=== PATIENT | female | born 1965 | race Caucasian/White ===

== ENCOUNTER → 2016-12-10 | Outpatient (CLI) | payer OTHER ==
--- NOTE | 2016-12-10 13:28 | XR ---
EXAMINATION TYPE: XR chest 2V DATE OF EXAM: 12/10/2016 COMPARISON: Prior chest x-ray 09/30/2015 HISTORY: Breast carcinoma, C50.411, cellulitis and chest wall, L03.313 TECHNIQUE: Frontal and lateral views of the chest are obtained. FINDINGS: There is no focal air space opacity, pleural effusion, or pneumothorax seen. The cardiac silhouette size is within normal limits. The osseous structures are remarkable for acromioclavicula r separation on the right, superior displacement of the distal clavicle relation to the acromion as o n previous exam. Breast prostheses are present. IMPRESSION: No acute cardiopulmonary process.
== END ==
LOC: RADXRMAIN 11:39
PROVIDERS: ATTEND Internal Medicine Hematology & Oncology
DX: C50.411 Malignant neoplasm of upper-outer quadrant of right female breast (principal); L03.313 Cellulitis of chest wall; Z17.1 Estrogen receptor negative status [ER-]; Z71.3 Dietary counseling and surveillance
CPT/HCPCS: 71020

== ENCOUNTER 2019-06-18 08:30 | Observation (INO) | payer OTHER ==
[2019-06-18] MEDS ORDERED: ONDANSETRON 4 MG/2 ML VIAL IVP STA (08:53)
[2019-06-18] MEDS ORDERED: SODIUM CHLORIDE 0.9% 1,000 ML IV STA ×2 (08:53)
[2019-06-18] MEDS ORDERED: KETOROLAC 30 MG/ML 1 ML VIAL IVP STA (08:53)
[2019-06-18] MEDS ORDERED: PANTOPRAZOLE 40 MG/10 ML VIAL IVP STA (08:53)
--- NOTE | 2019-06-18 08:56 | ED ---
Abdominal Pain HPI - General Chief Complaint: Abdominal Pain Stated Complaint: Abd Pain,Rectal Bleeding Time Seen by Provider: 06/18/19 08:37 Source: patient, RN notes reviewed, old records reviewed Mode of arrival: ambulatory Limitations: no limitations - History of Present Illness Initial Comments: Patient is a 54-year-old female with a history of ulcerative colitis. She presents today with 2 days of general malaise, and some bright red stools. Adilson desai reports that she's been having some lower abdominal pain. Patient states that she's had no specific fevers or chills. Denies any vomiting but did feel nauseated. She denies any chest pain or shortness of breath. Her ports that she's previously seen Dr. Tanner and had a colonoscopy approximately 4 years ago. Patient reports that she had a precancerous polyp. - Related Data Home Medications Medication Instructions Recorded Confirmed ALPRAZolam [Xanax] 0.5 mg PO HS PRN 09/25/15 01/18/16 Atorvastatin [Lipitor] 10 mg PO DAILY 09/25/15 01/18/16 HYDROcodone/APAP 10-325MG [[place] 1 - 2 tab PO DAILY PRN 09/25/15 01/18/16 10-325] Bisoprolol-Hctz 5-6.25 mg [Ziac 1 tab PO DAILY 01/18/16 01/18/16 5-6.25 MG] Multivitamins, Thera [Multivitamin] 1 tab PO DAILY 01/18/16 01/18/16 Allergies Allergy/AdvReac Type Severity Reaction Status Date / Time bacitracin Allergy Unknown Verified 06/18/19 08:36 [From Neosporin ([id number])] bacitracin zinc Allergy Unknown Verified 06/18/19 08:36 [From Neosporin ([id number])] minocycline [Minocycline] Allergy Unknown Verified 06/18/19 08:36 neomycin sulfate Allergy Unknown Verified 06/18/19 08:36 [From Neosporin ([id number])] polymyxin B Allergy Unknown Verified 06/18/19 08:36 [From Neosporin ([id number])] Review of Systems ROS Statement: Those systems with pertinent positive or pertinent negative responses have been documented in the HPI. ROS Other: All systems not noted in ROS Statement are negative. Past Medical History Past Medical History: Cancer Additional Past Medical History / Comment(s): CELLULITIS L breast multiple times, 2008 R breast cancer with bilateral mastectomies-no chemo, chronic back pain, sciatica bilateral legs, discomfort with urinating-burning for 2 yrs, DDD, R shoulder pain, R collar bone fx in past ulcerative colitis History of Any Multi-Drug Resistant Organisms: None Reported Past Surgical History: Bladder Surgery, Breast Surgery, Section, Tubal Ligation Additional Past Surgical History / Comment(s): rosalia mastectomy with reconstruction- L breast implant removed and replaced, bladder suspension, pain clinic injections. Past Anesthesia/Blood Transfusion Reactions: Postoperative Nausea & Vomiting (PONV) Additional Past Anesthesia/Blood Transfusion Reaction / Comment(s): Pt has never received blood. Past Psychological History: Anxiety, Depression Smoking Status: Former smoker Past Alcohol Use History: Occasional Past Drug Use History: Marijuana - Past Family History Father Family Medical History: CVA/TIA Additional Family Medical History / Comment(s): Father of a CVA at age 51 yrs. Mother Family Medical History: Cancer Additional Family Medical History / Comment(s): mom from breast ca at the age of 45 yrs. siblings are healthy. General Exam - General Exam Comments Initial Comments: 54-year-old female. Alert and oriented 3. Limitations: no limitations General appearance: alert, in no apparent distress Head exam: Present: atraumatic, normocephalic, normal inspection Eye exam: Present: normal appearance, PERRL, EOMI. Absent: scleral icterus, conjunctival injection, periorbital swelling ENT exam: Present: normal exam, mucous membranes moist Neck exam: Present: normal inspection. Absent: tenderness, meningismus, lymphadenopathy Respiratory exam: Present: normal lung sounds bilaterally. Absent: respiratory distress, wheezes, rales, rhonchi, stridor Cardiovascular Exam: Present: regular rate, normal rhythm, normal heart sounds. Absent: systolic murmur, diastolic murmur, rubs, gallop, clicks GI/Abdominal exam: Present: soft, tenderness (LLQ tenderness. ), normal bowel sounds. Absent: distended, guarding, rebound, rigid Rectal exam: Present: heme (+) stool, tenderness. Absent: normal inspection Extremities exam: Present: normal inspection Back exam: Present: normal inspection Neurological exam: Present: alert, oriented X3, CN II-XII intact Psychiatric exam: Present: normal affect, normal mood Skin exam: Present: warm, dry, intact, normal color. Absent: rash Course Vital Signs 06/18/19 06/18/19 08:33 11:57 Temperature 98.1 F 97.9 F Pulse Rate 60 57 L Respiratory 18 16 Rate Blood Pressure 173/99 145/85 O2 Sat by Pulse 96 99 Oximetry Medical Decision Making - Medical Decision Making 54-year-old female presents with malaise, bloody stool history history of ulcerative colitis. This time patient's labs were reviewed. She does have a positive occult blood. Patient's CBC is unremarkable. She did have some evidence of pancreatitis with elevated lipase of 690. No history of drinking or history of pancreatitis in the past. Patient's CT abdomen and pelvis was completed. Evidence of sigmoid colitis. No acute diverticulitis. Patient does appear to be quite comfortable and having some left-sided tenderness. For colitis that did discuss putting her on it one dose of Unasyn and Patient was given Protonix. Patient is hemodynamically stable. Discussed this with Dr. Akbar. Due to patient's can sit pain he discussed this with Dr. Baptiste agrees to admission with consults to surgery. CBCs every 6 hours. - Lab Data Result diagrams: 06/18/19 08:55 06/18/19 08:55 Lab Results 06/18/19 06/18/19 06/18/19 Range/Units 08:55 08:55 08:55 WBC 7.5 (3.8-10.6) k/uL RBC 4.47 (3.80-5.40) m/uL Hgb 14.2 (11.4-16.0) gm/dL Hct 42.5 (34.0-46.0) % MCV 95.2 (80.0-100.0) fL MCH 31.8 (25.0-35.0) pg MCHC 33.4 (31.0-37.0) g/dL RDW 12.8 (11.5-15.5) % Plt Count 260 (150-450) k/uL Neutrophils % 67 % Lymphocytes % 22 % Monocytes % 5 % Eosinophils % 3 % Basophils % 1 % Neutrophils # 5.0 (1.3-7.7) k/uL Lymphocytes # 1.7 (1.0-4.8) k/uL Monocytes # 0.3 (0-1.0) k/uL Eosinophils # 0.3 (0-0.7) k/uL Basophils # 0.1 (0-0.2) k/uL PT 9.6 (9.0-12.0) sec INR 0.9 (<1.2) APTT 24.8 (22.0-30.0) sec Sodium 140 (137-145) mmol/L Potassium 4.1 (3.5-5.1) mmol/L Chloride 108 H (98-107) mmol/L Carbon Dioxide 23 (22-30) mmol/L Anion Gap 9 mmol/L BUN 15 (7-17) mg/dL Creatinine 0.60 (0.52-1.04) mg/dL Est GFR (CKD-EPI)AfAm >90 (>60 ml/min/1.73 sqM) Est GFR (CKD-EPI)NonAf >90 (>60 ml/min/1.73 sqM) Glucose 114 H (74-99) mg/dL Calcium 9.4 (8.4-10.2) mg/dL Total Bilirubin 0.5 (0.2-1.3) mg/dL AST 36 (14-36) U/L ALT 35 H (4-34) U/L Alkaline Phosphatase 65 (38-126) U/L Total Protein 7.3 (6.3-8.2) g/dL Albumin 4.3 (3.5-5.0) g/dL Amylase 215 H (30-110) U/L Lipase 691 H (23-300) U/L Urine Color Urine Appearance (Clear) Urine pH (5.0-8.0) Ur Specific [place] (1.001-1.035) Urine Protein (Negative) Urine Glucose (UA) (Negative) Urine Ketones (Negative) Urine Blood (Negative) Urine Nitrite (Negative) Urine Bilirubin (Negative) Urine Urobilinogen (<2.0) mg/dL Ur Leukocyte Esterase (Negative) Urine RBC (0-5) /hpf Urine WBC (0-5) /hpf Ur Squamous Epith Cells (0-4) /hpf Urine Bacteria (None) /hpf Hyaline Casts (0-2) /lpf Urine Mucus (None) /hpf Stool Occult Blood (Negative) Blood Type Blood Type Recheck Bld Type Recheck Status Antibody Screen Spec Expiration Date 06/18/19 06/18/19 06/18/19 Range/Units 08:55 08:55 08:55 WBC (3.8-10.6) k/uL RBC (3.80-5.40) m/uL Hgb (11.4-16.0) gm/dL Hct (34.0-46.0) % MCV (80.0-100.0) fL MCH (25.0-35.0) pg MCHC (31.0-37.0) g/dL RDW (11.5-15.5) % Plt Count (150-450) k/uL Neutrophils % % Lymphocytes % % Monocytes % % Eosinophils % % Basophils % % Neutrophils # (1.3-7.7) k/uL Lymphocytes # (1.0-4.8) k/uL Monocytes # (0-1.0) k/uL Eosinophils # (0-0.7) k/uL Basophils # (0-0.2) k/uL PT (9.0-12.0) sec INR (<1.2) APTT (22.0-30.0) sec Sodium (137-145) mmol/L Potassium (3.5-5.1) mmol/L Chloride (98-107) mmol/L Carbon Dioxide (22-30) mmol/L Anion Gap mmol/L BUN (7-17) mg/dL Creatinine (0.52-1.04) mg/dL Est GFR (CKD-EPI)AfAm (>60 ml/min/1.73 sqM) Est GFR (CKD-EPI)NonAf (>60 ml/min/1.73 sqM) Glucose (74-99) mg/dL Calcium (8.4-10.2) mg/dL Total Bilirubin (0.2-1.3) mg/dL AST (14-36) U/L ALT (4-34) U/L Alkaline Phosphatase (38-126) U/L Total Protein (6.3-8.2) g/dL Albumin (3.5-5.0) g/dL Amylase (30-110) U/L Lipase (23-300) U/L Urine Color Light Yellow Urine Appearance Cloudy H (Clear) Urine pH 5.0 (5.0-8.0) Ur Specific [place] 1.012 (1.001-1.035) Urine Protein Negative (Negative) Urine Glucose (UA) Negative (Negative) Urine Ketones Negative (Negative) Urine Blood Trace H (Negative) Urine Nitrite Negative (Negative) Urine Bilirubin Negative (Negative) Urine Urobilinogen <2.0 (<2.0) mg/dL Ur Leukocyte Esterase Moderate H (Negative) Urine RBC 5 (0-5) /hpf Urine WBC 3 (0-5) /hpf Ur Squamous Epith Cells 10 H (0-4) /hpf Urine Bacteria Rare H (None) /hpf Hyaline Casts 1 (0-2) /lpf Urine Mucus Rare H (None) /hpf Stool Occult Blood Positive H (Negative) Blood Type A Positive Blood Type Recheck A Pos Bld Type Recheck Status No Antibody Screen NEGATIVE Spec Expiration Date 06/21/2019 - 2667 - Radiology Data Radiology results: report reviewed Mild circumferential wall thickening mid to distal sigmoid suggest nonspecific mild colitis. Sigmoid diverticulosis. No acute inflammatory changes centered along any diverticular suggest acute diverticulitis. Disposition Clinical Impression: Colitis, Pancreatitis, GI bleed Disposition: ADMITTED IP TO THIS [facility] Condition: Stable Is patient prescribed a controlled substance at d/c from ED?: No Referrals: Yonatan Melchor Jr, DO [Primary Care Provider] - 1-2 days Time of Disposition: 12:23
[2019-06-18 09:11] LABS: Basophils # (A) 0.1 k/uL (0-0.2); Basophils % (A) 1 %; Eosinophils # (A) 0.3 k/uL (0-0.7); Eosinophils % (A) 3 %; HCT 42.5 % (34.0-46.0); HGB 14.2 gm/dL (11.4-16.0); Lymphocytes # (A) 1.7 k/uL (1.0-4.8); Lymphocytes % (A) 22 %; MCH 31.8 pg (25.0-35.0); MCHC 33.4 g/dL (31.0-37.0); MCV 95.2 fL (80.0-100.0); Mean Platelet Volume 7.9; Monocytes # (A) 0.3 k/uL (0-1.0); Monocytes % (A) 5 %; Neutrophils % (A) 67 %; Platelet Count 260 k/uL (150-450); RBC 4.47 m/uL (3.80-5.40); RDW 12.8 % (11.5-15.5); WBC 7.5 k/uL (3.8-10.6)
[2019-06-18 09:19] LABS: Appearance,Urine Cloudy (Clear); Bacteria,Urine Rare /hpf; Bilirubin,Urine Negative (Negative); Blood,Urine Trace (Negative); Color,Urine Light Yellow; Glucose,Urine (UA) Negative (Negative); Hyaline Casts,Urine 1 /lpf (0-2); Ketones,Urine Negative (Negative); Leukocyte Esterase,Urine Moderate (Negative); Mucus,Urine Rare /hpf; Nitrite,Urine Negative (Negative); Protein,Urine Negative (Negative); RBC,Urine 5 /hpf (0-5); Specific Gravity,Urine 1.012 (1.001-1.035); Squamous Epithelial Cell,Urine 10 /hpf (0-4); Urobilinogen,Urine <2.0 mg/dL (<2.0); WBC,Urine 3 /hpf (0-5)
[2019-06-18 09:23] LABS: ALT 35 U/L (4-34); AST 36 U/L (14-36); African American GFR (CKD) >90 (>60 ml/min/1.73 sqM); Albumin 4.3 g/dL (3.5-5.0); Alkaline Phosphatase 65 U/L (38-126); Amylase 215 U/L (30-110); Anion Gap 9 mmol/L; Blood Urea Nitrogen 15 mg/dL (7-17); Calcium 9.4 mg/dL (8.4-10.2); Carbon Dioxide 23 mmol/L (22-30); Chloride 108 mmol/L (98-107); Glucose 114 mg/dL (74-99); Non-African American GFR(CKD) >90 (>60 ml/min/1.73 sqM); Potassium 4.1 mmol/L (3.5-5.1); Sodium 140 mmol/L (137-145); Total Bilirubin 0.5 mg/dL (0.2-1.3); Total Protein 7.3 g/dL (6.3-8.2)
[2019-06-18 09:25] LABS: INR 0.9 (<1.2); Partial Thromboplastin Time 24.8 sec (22.0-30.0); Prothrombin Time 9.6 sec (9.0-12.0)
--- NOTE | 2019-06-18 10:32 | CT ---
EXAMINATION TYPE: CT abdomen pelvis w con DATE OF EXAM: 06/18/2019 COMPARISON: 01/18/2016 HISTORY: 54-year-old female rectal bleeding, bloody stool TECHNIQUE: Contiguous axial scanning of the abdomen and pelvis following administration of 100 ml Iso homer 300 IV contrast. Delayed images through the kidneys and coronal/sagittal reconstructions perform ed. CT DLP: 1009 mGycm Automated exposure control for dose reduction was used. FINDINGS: Heart normal size without pericardial effusion. Tiny hiatal hernia. Small 4 mm peripheral right basil ar pulmonary nodule is unchanged. No pleural effusion. Partially visualized bilateral breast implants . No focal liver lesion or biliary ductal dilatation. Portal venous system is patent. Gallbladder, adrenal glands, kidneys, spleen, and pancreas appear within normal limits. Moderate apical scarring change throughout the abdominal aorta and common iliac arteries without aneu rysm. No dilated small bowel, free fluid, or free air. No mesenteric or retroperitoneal lymphadenopathy. Normal appendix. Sigmoid diverticulosis. No focal inflammatory change seen centered along the divert icula. However, there is mild circumferential wall thickening along the mid to distal sigmoid. No per icolonic inflammatory change. Bladder partially distended. Uterus anteverted. Both ovaries are visualized. Multiple pelvic lymph no maddi. No abnormal fluid collection in the pelvis or pelvic lymphadenopathy. Bones: No osseous destructive process. IMPRESSION: 1. MILD CIRCUMFERENTIAL WALL THICKENING MID TO DISTAL SIGMOID SUGGESTS NONSPECIFIC MILD COLITIS. 2. SIGMOID DIVERTICULOSIS. NO FOCAL INFLAMMATORY CHANGE IS CENTERED ALONG ANY OF THE DIVERTICULA TO S UGGEST AN ACUTE DIVERTICULITIS.
[2019-06-18] MEDS ORDERED: MORPHINE SULFATE 4 MG/ML SYRINGE IVP STA (10:41)
[2019-06-18] MEDS ORDERED: AMPICILLIN-SULBACTAM 3 GM in SODIUM CHLORIDE 0.9% 100 ML IVPB STA (12:20)
[2019-06-18] MEDS ORDERED: HYDROmorphone 1 MG/ML 1 ML SYRINGE IVP STA (12:20)
[2019-06-18] MEDS ORDERED: IBUPROFEN 400 MG TAB PO PRN (12:23)
[2019-06-18] MEDS ORDERED: NALOXONE 0.4 MG/ML 1 ML VIAL IV PRN (12:23)
[2019-06-18] MEDS ORDERED: ACETAMINOPHEN TAB 325 MG TAB PO PRN (12:23)
[2019-06-18 13:00] LABS: Basophils % (A) 0 %; Eosinophils # (A) 0.2 k/uL (0-0.7); Eosinophils % (A) 2 %; HCT 41.6 % (34.0-46.0); HGB 13.6 gm/dL (11.4-16.0); Lymphocytes # (A) 1.5 k/uL (1.0-4.8); Lymphocytes % (A) 23 %; MCH 31.5 pg (25.0-35.0); MCHC 32.8 g/dL (31.0-37.0); MCV 96.3 fL (80.0-100.0); Mean Platelet Volume 7.8; Monocytes # (A) 0.3 k/uL (0-1.0); Monocytes % (A) 4 %; Neutrophils # (A) 4.6 k/uL (1.3-7.7); Neutrophils % (A) 69 %; Platelet Count 250 k/uL (150-450); RBC 4.32 m/uL (3.80-5.40); RDW 12.7 % (11.5-15.5); WBC 6.7 k/uL (3.8-10.6)
[2019-06-18] MEDS: HYDROmorphone 0.5 MG/0.5 ML SYRINGE IVP PRN (16:07)
[2019-06-18] MEDS: HYDROmorphone 1 MG/ML 1 ML SYRINGE IVP PRN ×2 (18:17→22:03)
[2019-06-18] MEDS: ONDANSETRON 4 MG/2 ML VIAL IVP PRN (20:05)
[2019-06-18] MEDS: BISOPROLOL-HCTZ 5-6.25 MG 1 EACH TAB PO SCH (22:02)
[2019-06-18] MEDS: ATORVASTATIN 20 MG TAB PO SCH (22:02)
[2019-06-18] MEDS: SODIUM CHLORIDE 0.9% 1,000 ML IV SCH ×2 (22:04→22:12)
[2019-06-19] MEDS: HYDROmorphone 1 MG/ML 1 ML SYRINGE IVP PRN (03:05)
[2019-06-19] MEDS: ONDANSETRON 4 MG/2 ML VIAL IVP PRN ×3 (03:05→18:15)
[2019-06-19] MEDS ORDERED: SCOPOLAMINE 1.5MG/72HR PATCH TRANSDERM SCH (09:00)
[2019-06-19] MEDS: PANTOPRAZOLE 40 MG/10 ML VIAL IV SCH (09:52)
[2019-06-19] MEDS: SODIUM CHLORIDE 0.9% 1,000 ML IV SCH ×2 (09:53→20:17)
[2019-06-19] MEDS: BISOPROLOL-HCTZ 5-6.25 MG 1 EACH TAB PO SCH (09:53)
[2019-06-19] MEDS: HYDROmorphone 0.5 MG/0.5 ML SYRINGE IVP PRN ×3 (09:59→21:35)
[2019-06-19 11:14] LABS: ALT 37 U/L (4-34); AST 32 U/L (14-36); African American GFR (CKD) >90 (>60 ml/min/1.73 sqM); Albumin 4.4 g/dL (3.5-5.0); Alkaline Phosphatase 66 U/L (38-126); Amylase 96 U/L (30-110); Anion Gap 7 mmol/L; Blood Urea Nitrogen 10 mg/dL (7-17); Calcium 9.6 mg/dL (8.4-10.2); Carbon Dioxide 25 mmol/L (22-30); Chloride 106 mmol/L (98-107); Glucose 98 mg/dL (74-99); Non-African American GFR(CKD) >90 (>60 ml/min/1.73 sqM); Potassium 4.3 mmol/L (3.5-5.1); Sodium 138 mmol/L (137-145); Total Bilirubin 0.8 mg/dL (0.2-1.3); Total Protein 7.3 g/dL (6.3-8.2)
[2019-06-19 11:23] LABS: Basophils % (A) 0 %; Eosinophils # (A) 0.1 k/uL (0-0.7); Eosinophils % (A) 2 %; HGB 14.2 gm/dL (11.4-16.0); Lymphocytes # (A) 1.2 k/uL (1.0-4.8); Lymphocytes % (A) 18 %; MCH 31.6 pg (25.0-35.0); MCV 95.5 fL (80.0-100.0); Mean Platelet Volume 7.8; Monocytes # (A) 0.3 k/uL (0-1.0); Monocytes % (A) 4 %; Neutrophils # (A) 5.2 k/uL (1.3-7.7); Neutrophils % (A) 74 %; Platelet Count 245 k/uL (150-450); RBC 4.51 m/uL (3.80-5.40); RDW 12.7 % (11.5-15.5)
[2019-06-19] MEDS ORDERED: DICYCLOMINE 20 MG TAB PO PRN (12:17)
--- NOTE | 2019-06-19 14:43 | P.GSCN ---
History of Present Illness Consult date: 06/19/19 Reason for Consult: GIB, pancreatitis Requesting physician: Dudley Rojas History of present illness: CHIEF COMPLAINT: abdominal pain, blood per rectum HISTORY OF PRESENT ILLNESS: 54 year old female with a history of ulcerative colitis who presented to the ER with a chief complaint of abdominal pain and bright red blood per rectum. Patient reports her UC has been under control recently. She has not followed up with Dr. Mohamud in almost 3 years, which was the last time she was hospitalized for her ulcerative colitis. She reports her last colonoscopy was about 3 years ago also. She reports generalized abdominal pain. Reports mild nausea. No vomiting. She reports bright red blood per rectum x 2 days. She reports occasional alcohol use. Denies previous problems with her gallbladder. She does report drinking quite a bit more than normal the past few days prior to coming to the hospital. PAST MEDICAL HISTORY: See list. PAST SURGICAL HISTORY: See list. SOCIAL HISTORY: No illicit drug use. REVIEW OF SYSTEMS: CONSTITUTIONAL: Denies fever or chills. HEENT: Denies blurred vision, vision changes, or eye pain. Denies hemoptysis CARDIOVASCULAR: Denies chest pain or pressure. RESPIRATORY: No shortness of breath. GASTROINTESTINAL: Refer to HPI for pertinent findings HEMATOLOGIC: Denies bleeding disorders. GENITOURINARY: Denies any blood in urine. SKIN: Denies pruitis. Denies rash. PHYSICAL EXAM: VITAL SIGNS: Reviewed. GENERAL: Well-developed in no acute distress. HEENT: No sclera icterus. Extraocular movements grossly intact. Moist buccal mucosa. Head is atraumatic, normocephalic. ABDOMEN: Soft. Nondistended. Mild diffuse abdominal tenderness. NEUROLOGIC: Alert and oriented. Cranial nerves II through XII grossly intact. LABORATORY DATA: WBC 7.0. Hemoglobin 14.2. Platelet count 245. Bilirubin 0.8. AST 32. ALT 37. Amylase 96. Lipase 180. IMAGING: CT abdomen and pelvis: mild circumferential wall thickening mid to distal sigmoid colon suggesting nonspecific mild colitis. Sigmoid diverticulosis. No inflammatory changes to suggest acute diverticulitis. ASSESSMENT: 1. Abdominal pain 2. Bright red blood per rectum 3. Colitis 4. Diverticulosis 5. Pancreatitis 6. History of ulcerative colitis PLAN: Full liquid diet as tolerated Continue anti-emetics Consult GI for evaluation Abdominal US GB to rule out gallbladder involvement of pancreatitis Nurse practitioner note has been reviewed by physician. Signing provider agrees with the documented findings, assessment, and plan of care. Past Medical History Past Medical History: Cancer Additional Past Medical History / Comment(s): CELLULITIS L breast multiple times, 2007 R breast cancer with bilateral mastectomies-no chemo, chronic back pain, sciatica bilateral legs, discomfort with urinating-burning for 2 yrs, DDD, R shoulder pain, R collar bone fx in past ulcerative colitis History of Any Multi-Drug Resistant Organisms: None Reported Past Surgical History: Bladder Surgery, Breast Surgery, Section, Tubal Ligation Additional Past Surgical History / Comment(s): rosalia mastectomy with reconstruction- L breast implant removed and replaced, bladder suspension, pain clinic injections. Past Anesthesia/Blood Transfusion Reactions: Postoperative Nausea & Vomiting (PONV) Additional Past Anesthesia/Blood Transfusion Reaction / Comm: Pt has never received blood. Past Psychological History: Anxiety, Depression Additional Psychological History / Comment(s): Suzy is and lives with her . She has no recent travels, and has no service. The re is a new puppy in the home. She is a tobacco smoker of about half pack per day for 20 years, quit in 2009. She states she smokes marijuana on occasion for pain control. She drinks alcohol on occasion. She works for a local company. Smoking Status: Former smoker Past Alcohol Use History: Occasional Additional Past Alcohol Use History / Comment(s): Pt started smoking in 1969 and quit in 2009. She was a half pack a day smoker. Past Drug Use History: Marijuana Additional Drug Use History / Comment(s): Pt states she smokes marijuana on occasion but not regularly for pain purposes. - Past Family History Father Family Medical History: CVA/TIA Additional Family Medical History / Comment(s): Father of a CVA at age 51 yrs. Mother Family Medical History: Cancer Additional Family Medical History / Comment(s): mom from breast ca at the age of 45 yrs. siblings are healthy. Medications and Allergies Home Medications Medication Instructions Recorded Confirmed Type HYDROcodone/APAP 10-325MG [[place] 1 - 2 tab PO DAILY PRN 09/25/15 06/18/19 History 10-325] Bisoprolol-Hctz 5-6.25 mg [Ziac 1 tab PO DAILY 01/18/16 06/18/19 History 5-6.25 MG] Atorvastatin [Lipitor] 20 mg PO HS 06/18/19 06/18/19 History Allergies Allergy/AdvReac Type Severity Reaction Status Date / Time bacitracin Allergy Unknown Verified 06/18/19 08:36 [From Neosporin ([id number])] bacitracin zinc Allergy Unknown Verified 06/18/19 08:36 [From Neosporin ([id number])] minocycline [Minocycline] Allergy Unknown Verified 06/18/19 08:36 neomycin sulfate Allergy Unknown Verified 06/18/19 08:36 [From Neosporin ([id number])] polymyxin B Allergy Unknown Verified 06/18/19 08:36 [From Neosporin ([id number])] Surgical - Exam Vital Signs Temp Pulse Resp BP Pulse Ox 98.1 F 60 18 173/99 96 06/18/19 08:33 06/18/19 08:33 06/18/19 08:33 06/18/19 08:33 06/18/19 08:33 Results - Labs 06/19/19 10:16 06/19/19 10:16 Abnormal Lab Results - Last 24 Hours (Table) 06/19/19 Range/Units 10:16 ALT 37 H (4-34) U/L Diabetes panel 06/19/19 Range/Units 10:16 Sodium 138 (137-145) mmol/L Potassium 4.3 (3.5-5.1) mmol/L Chloride 106 (98-107) mmol/L Carbon Dioxide 25 (22-30) mmol/L BUN 10 (7-17) mg/dL Creatinine 0.68 (0.52-1.04) mg/dL Glucose 98 (74-99) mg/dL Calcium 9.6 (8.4-10.2) mg/dL AST 32 (14-36) U/L ALT 37 H (4-34) U/L Alkaline Phosphatase 66 (38-126) U/L Total Protein 7.3 (6.3-8.2) g/dL Albumin 4.4 (3.5-5.0) g/dL Calcium panel 06/19/19 Range/Units 10:16 Calcium 9.6 (8.4-10.2) mg/dL Albumin 4.4 (3.5-5.0) g/dL Pituitary panel 06/19/19 Range/Units 10:16 Sodium 138 (137-145) mmol/L Potassium 4.3 (3.5-5.1) mmol/L Chloride 106 (98-107) mmol/L Carbon Dioxide 25 (22-30) mmol/L BUN 10 (7-17) mg/dL Creatinine 0.68 (0.52-1.04) mg/dL Glucose 98 (74-99) mg/dL Calcium 9.6 (8.4-10.2) mg/dL Adrenal panel 06/19/19 Range/Units 10:16 Sodium 138 (137-145) mmol/L Potassium 4.3 (3.5-5.1) mmol/L Chloride 106 (98-107) mmol/L Carbon Dioxide 25 (22-30) mmol/L BUN 10 (7-17) mg/dL Creatinine 0.68 (0.52-1.04) mg/dL Glucose 98 (74-99) mg/dL Calcium 9.6 (8.4-10.2) mg/dL Total Bilirubin 0.8 (0.2-1.3) mg/dL AST 32 (14-36) U/L ALT 37 H (4-34) U/L Alkaline Phosphatase 66 (38-126) U/L Total Protein 7.3 (6.3-8.2) g/dL Albumin 4.4 (3.5-5.0) g/dL
--- NOTE | 2019-06-19 15:25 | US ---
EXAMINATION TYPE: US abdomen limited DATE OF EXAM: 06/19/2019 COMPARISON: CT 2019 CLINICAL HISTORY: pancreatitis, check gallbladder. Colitis, pancreatitis, exam done portable. EXAM MEASUREMENTS: Liver Length: 15.4 cm Gallbladder Wall: 0.2 cm CBD: 0.3 cm Right Kidney: 10.9 x 4.6 x 4.4 cm Pancreas: heterogeneous, tail limited by overlying midline bowel gas Liver: There is increased echogenicity of the hepatic parenchyma with diminished visualization of th e portal triads most commonly relating to hepatic steatosis and limiting evaluation for underlying he patic masses. Gallbladder: Elongated approaching criteria for hydropic size. Evidence for sonographic Brewster's sign: no CBD: visualized portions wnl, limited by overlying bowel gas Right Kidney: no hydronephrosis or masses seen IMPRESSION: 1. Prominent size of the gallbladder, otherwise unremarkable appearance of the gallbladder. No sonogr aphic evidence of acute cholecystitis. 2. Sonographic findings most commonly related to hepatic steatosis. Correlate with liver function north ts.
[2019-06-19] MEDS ORDERED: PIPERACILLIN-TAZOBACTAM 3.375 GM in SODIUM CHLORIDE 0.9% 100 ML IVPB SCH (16:00)
--- NOTE | 2019-06-19 18:09 | P.HPIM ---
History of Present Illness H&P Date: 06/19/19 Chief Complaint: Abdominal pain, rectal bleeding This is a 54-year-old female with history of ulcerative colitis, breast cancer, cellulitis, chronic back pain, sciatica, anxiety, depression, degenerative disc disease, presented to the ER with complaints of malaise, bright red rectal bleeding, abdominal pain. Reports last colonoscopy with a precancerous polyp approximately 3 -4 years ago which is about the last time she followed up with Dr. Mohamud. Reports bright red rectal bleeding 2 days with generalized diffuse abdominal pain, nausea and no emesis. Denies chills or fever. Denies chest pain, palpitations or shortness of breath. Abdominal/pelvis CT reporting small 4 mm peripheral right basilar pulmonary nodules unchanged, moderate apical scarring throughout the abdominal aorta and common iliac arteries without aneurysm, no dilated small bowel free fluid or free air, no mesenteric or retroperitoneal lymphadenopathy , mild circumferential wall thickening along the mid to distal sigmoid -nonspecific mild colitis, sigmoid diverticulosis. Afebrile, normal WBC. Positive stool for occult blood .Hemoglobin 14.2. Platelets 245, bili 0.8, AST 32, ALT 37, amylase 215 down to 96, lipase 691 down to 180. UA with moderate leukocytes, 3 WBCs, rare bacteria. Review of Systems ROS Statement: Those systems with pertinent positive or pertinent negative responses have been documented in the HPI. ROS Other: All systems not noted in ROS Statement are negative. Past Medical History Past Medical History: Cancer Additional Past Medical History / Comment(s): CELLULITIS L breast multiple times, 2008 R breast cancer with bilateral mastectomies-no chemo, chronic back pain, sciatica bilateral legs, discomfort with urinating-burning for 2 yrs, DDD, R shoulder pain, R collar bone fx in past ulcerative colitis History of Any Multi-Drug Resistant Organisms: None Reported Past Surgical History: Bladder Surgery, Breast Surgery, Section, Tubal Ligation Additional Past Surgical History / Comment(s): rosalia mastectomy with reconstruction- L breast implant removed and replaced, bladder suspension, pain clinic injections. Past Anesthesia/Blood Transfusion Reactions: Postoperative Nausea & Vomiting (PONV) Additional Past Anesthesia/Blood Transfusion Reaction / Comment(s): Pt has never received blood. Past Psychological History: Anxiety, Depression Additional Psychological History / Comment(s): Suzy is and lives with her . She has no recent travels, and has no service. There is a new puppy in the home. She is a tobacco smoker of about half pack per day for 20 years, quit in 2009. She states she smokes marijuana on occasion for pain control. She drinks alcohol on occasion. She works for a local company. Smoking Status: Former smoker Past Alcohol Use History: Occasional Additional Past Alcohol Use History / Comment(s): Pt started smoking in 1970 and quit in 2009. She was a half pack a day smoker. Past Drug Use History: Marijuana Additional Drug Use History / Comment(s): Pt states she smokes marijuana on occasion but not regularly for pain purposes. - Past Family History Father Family Medical History: CVA/TIA Additional Family Medical History / Comment(s): Father of a CVA at age 51 yrs. Mother Family Medical History: Cancer Additional Family Medical History / Comment(s): mom from breast ca at the age of 45 yrs. siblings are healthy. Medications and Allergies Home Medications Medication Instructions Recorded Confirmed Type HYDROcodone/APAP 10-325MG [[place] 1 - 2 tab PO DAILY PRN 09/25/15 06/18/19 History 10-325] Bisoprolol-Hctz 5-6.25 mg [Ziac 1 tab PO DAILY 01/18/16 06/18/19 History 5-6.25 MG] Atorvastatin [Lipitor] 20 mg PO HS 06/18/19 06/18/19 History Allergies Allergy/AdvReac Type Severity Reaction Status Date / Time bacitracin Allergy Unknown Verified 06/18/19 08:36 [From Neosporin ([id number])] bacitracin zinc Allergy Unknown Verified 06/18/19 08:36 [From Neosporin ([id number])] minocycline [Minocycline] Allergy Unknown Verified 06/18/19 08:36 neomycin sulfate Allergy Unknown Verified 06/18/19 08:36 [From Neosporin ([id number])] polymyxin B Allergy Unknown Verified 06/18/19 08:36 [From Neosporin ([id number])] Physical Exam Vitals: Vital Signs Temp Pulse Pulse Resp BP BP Pulse Ox 06/19/19 07:00 98.5 F 65 17 142/79 96 06/19/19 00:46 98.2 F 76 12 173/62 94 L 06/18/19 19:52 98.3 F 54 L 12 144/72 96 06/18/19 15:10 60 18 06/18/19 15:00 98.1 F 60 18 136/68 98 06/18/19 13:33 98 F 84 16 149/74 98 06/18/19 11:57 97.9 F 57 L 16 145/85 99 Intake and Output 06/18/19 06/19/19 06/19/19 22:59 06:59 14:59 Other: Voiding Method Toilet # Voids 1 1 PHYSICAL EXAM: VITAL SIGNS: As above GENERAL: Sitting up in bed, no acute distress, tired appearing HEENT: Conjunctivae normal. eyes normal. NECK: No JVD. No thyroid enlargement. No LNs CARDIOVASCULAR: S1, S2 regular.. No murmur RESPIRATION: Breath sounds diminished in the bases. No rhonchi or crackles. No bronchial breathing. ABDOMEN: Soft, mild diffuse tenderness more on the left side, No guarding. no masses palpable. No ascites, No hepatosplenomegaly.Bowel sounds heard. LEGS: No edema. no swelling PSYCHIATRY: Alert and oriented X3, mood and affect normal. NERVOUS SYSTEM: Cranial N 2-12 grossly normal. Moves all 4 limbs. Diffuse weakness No focal deficits. Strength and sensation grossly intact.. Skin: no lesions, no rash Joints: No active swelling. No inflammation. Lymphatic system. No LN neck axilla or groin. Results CBC & Chem 7: 06/19/19 10:16 06/19/19 10:16 Thrombosis Risk Factor Assmnt - Choose All That Apply Any of the Below Risk Factors Present?: Yes Each Factor Represents 1 point: Obesity (BMI >25) Thrombosis Risk Factor Assessment Total Risk Factor Score: 1 Thrombosis Risk Factor Assessment Level: Low Risk Assessment and Plan Assessment: Abdominal pain , accompanied by bright red rectal bleeding .Nonspecific mild colitis, in a patient with history of ulcerative colitis sigmoid diverticulosis pancreatitis, Anxiety, depression Occasional THC use Occasional EtOH use Plan: Continue on current medication regime ,monitoring and symptomatic jennifer tment. NPO.Surgical and GI consults in place with recommendations pending. Possible initiation of steroids, defer to GI. Hemoglobin stable-Close monitoring of CBC. Gallbladder ultrasound pending. The impression and plan of care has been dictated as directed. : I performed a history and examination of this patient, discussed the same with the dictator. I agree with the dictator's note ,documented as a scribe. Any additional findings or plans will be noted.
--- NOTE | 2019-06-19 20:15 | CONS ---
CONSULTATION DATE OF DICTATION: 06/19/2019 REQUESTING PHYSICIAN: Dr. Melchor. REASON FOR CONSULTATION: Abdominal pain and rectal bleeding. HISTORY OF PRESENT ILLNESS: The patient is a 55 -year-old pleasant white female who came into the emergency room yesterday after she started experiencing lower abdominal pain followed by bloody diarrhea. She started having these symptoms Wednesday morning. She had bright red blood per rectum followed by severe cramping lower abdominal pain. She had 2 episodes on that day and yesterday she had another episode. She became concerned, came into the emergency room and subsequently was admitted to the hospital for further evaluation. Since being in the hospital, she had no further episodes of bleeding. She has some crampy lower abdominal pain. No nausea, vomiting. No fever, chills, night sweats. She denies any recent travel history. She denies any recent antibiotic use. She had a similar episode in January of 2016 at which time she was admitted to the hospital. She was seen by me, had a colonoscopy done that showed evidence of ischemic colitis involving the sigmoid and descending colon. In the last 3 years, she was otherwise asymptomatic. PAST MEDICAL HISTORY: Significant for hypertension, hyperlipidemia, anxiety. ALLERGIES: BACTRIM, NEOSPORIN. MEDICATIONS AT HOME INCLUDE: Xanax, Lipitor, [place], Ziac and multivitamin. SOCIAL HISTORY: Former smoker. No alcohol use. PAST SURGICAL HISTORY: Bladder surgery, breast surgery, , tubal ligation. REVIEW OF SYSTEMS: CARDIOPULMONARY: No chest pain, shortness of breath. Genitourinary: No dysuria or hematuria. Musculoskeletal unremarkable. SKIN unremarkable. Endocrine: Unremarkable. Psychiatric: Unremarkable. Neurological: Unremarkable. ENT/vision unremarkable. CONSTITUTIONAL: No recent weight loss. No fever, chills, or sweats. FAMILY HISTORY: Father of CVA and mother had breast cancer. PHYSICAL EXAMINATION: She appears comfortable. No apparent distress. Vital signs stable. Blood pressure is 143/79, pulse is 65, temperature 98.5. HEENT examination unremarkable. Conjunctivae pink. Sclerae anicteric. Oral cavity no lesions. NECK: No JVD or lymph node enlargement. CHEST: Clear to auscultation. HEART: Regular rate and rhythm. ABDOMEN: Soft. Bowel sounds are positive. No organomegaly. EXTREMITIES: No pedal edema. SKIN no rashes. NEUROLOGIC: Alert and oriented x3. No focal deficits. LABS: WBC 7, hemoglobin 14.2, platelets normal. Basic metabolic panel is within normal limits. Repeat labs today: Hemoglobin is 14.2 g/dL. IMPRESSION: This is lady who presents with acute onset of lower abdominal pain followed by rectal bleeding for the last 2 days duration. She did have a CT of the abdomen and pelvis done in the emergency room that showed thickening of the sigmoid colon and scattered sigmoid diverticulosis. Her symptoms are consistent with possible ischemic colitis versus infectious etiology. She did have a similar episode in January of 2016 at which time a colonoscopy revealed ischemic colitis. No history of inflammatory bowel disease. RECOMMENDATIONS: 1. Start her on a clear liquid diet. 2. Continue with empiric antibiotics. 3. Repeat labs in the morning. 4. If her symptoms improve and no further bleeding, she can be discharged home tomorrow with outpatient followup in 2 weeks. 5. No plans for any endoscopy intervention at the present time. Thank you for this consultation. LETICIA / KIET: [id number] /
[2019-06-19] MEDS: ATORVASTATIN 20 MG TAB PO SCH (20:17)
[2019-06-20 02:00] VITALS: RESP 18
[2019-06-20 07:54] LABS: Basophils # (A) 0.1 k/uL (0-0.2); Basophils % (A) 1 %; Eosinophils # (A) 0.2 k/uL (0-0.7); Eosinophils % (A) 3 %; HCT 43.7 % (34.0-46.0); HGB 14.4 gm/dL (11.4-16.0); Lymphocytes # (A) 1.7 k/uL (1.0-4.8); Lymphocytes % (A) 26 %; MCH 31.4 pg (25.0-35.0); MCV 95.2 fL (80.0-100.0); Mean Platelet Volume 7.9; Monocytes # (A) 0.3 k/uL (0-1.0); Monocytes % (A) 5 %; Neutrophils # (A) 4.1 k/uL (1.3-7.7); Neutrophils % (A) 63 %; Platelet Count 244 k/uL (150-450); RBC 4.59 m/uL (3.80-5.40); RDW 12.7 % (11.5-15.5); WBC 6.6 k/uL (3.8-10.6)
[2019-06-20] MEDS: SODIUM CHLORIDE 0.9% 1,000 ML IV SCH (08:03)
[2019-06-20] MEDS: PANTOPRAZOLE 40 MG/10 ML VIAL IV SCH (08:03)
[2019-06-20] MEDS: BISOPROLOL-HCTZ 5-6.25 MG 1 EACH TAB PO SCH (08:03)
[2019-06-20] MEDS: ONDANSETRON 4 MG/2 ML VIAL IVP PRN (08:03)
[2019-06-20] MEDS: HYDROmorphone 0.5 MG/0.5 ML SYRINGE IVP PRN (08:03)
[2019-06-20 08:15] LABS: African American GFR (CKD) >90 (>60 ml/min/1.73 sqM); Anion Gap 9 mmol/L; Blood Urea Nitrogen 11 mg/dL (7-17); Calcium 9.4 mg/dL (8.4-10.2); Carbon Dioxide 25 mmol/L (22-30); Chloride 106 mmol/L (98-107); Glucose 97 mg/dL (74-99); Non-African American GFR(CKD) >90 (>60 ml/min/1.73 sqM); Potassium 4.1 mmol/L (3.5-5.1); Sodium 140 mmol/L (137-145)
--- NOTE | 2019-06-20 13:16 | P.PN ---
Subjective Progress Note Date: 06/20/19 CHIEF COMPLAINT: abdominal pain, blood per rectum HISTORY OF PRESENT ILLNESS: Patient examined at the bedside this morning. She reports overall improvement since yesterday. Reports mild nausea. No emesis. Tolerating diet. Passing flatus. Abdominal ultrasound obtained yesterday revealed hydropic gallbladder. PHYSICAL EXAM: VITAL SIGNS: Reviewed. GENERAL: Well-developed in no acute distress. HEENT: No sclera icterus. Extraocular movements grossly intact. Moist buccal mucosa. Head is atraumatic, normocephalic. ABDOMEN: Soft. Nondistended. Minimal abdominal tenderness. No peritoneal signs. NEUROLOGIC: Alert and oriented. Cranial nerves II through XII grossly intact. ASSESSMENT: 1. Abdominal pain 2. Bright red blood per rectum 3. Colitis 4. Diverticulosis 5. Pancreatitis 6. History of ulcerative colitis PLAN: Advance diet as tolerated Dr. Powell recommends HIDA scan to be performed GI on consult. Appreciate recommendations Nurse practitioner note has been reviewed by physician. Signing provider agrees with the documented findings, assessment, and plan of care. Objective - Vital Signs Vital signs: Vital Signs Temp 97.8 F 06/20/19 07:00 Pulse 60 06/20/19 07:00 Resp 18 06/20/19 07:50 BP 149/86 06/20/19 07:00 Pulse Ox 95 06/20/19 07:00 Intake & Output 06/19/19 06/20/19 06/20/19 18:59 06:59 18:59 Intake Total 1540 Balance 1540 Intake: Intake, IV Titration 1000 Amount Sodium Chloride 0.9% 1, 1000 000 ml @ 100 mls/hr IV . Q10H [facility] Rx#:[id number] Oral 540 Other: Voiding Method Toilet # Voids 2 - Labs CBC & Chem 7: 06/20/19 06:34 06/20/19 06:34 Labs: Microbiology - Last 24 Hours (Table) 06/18/19 13:05 Blood Culture - Preliminary Blood No Growth after 24 hours
--- NOTE | 2019-06-20 13:41 | P.DS ---
Providers Date of admission: 06/18/19 12:07 Expected date of discharge: 06/20/19 Attending physician: Ananda Carter Consults: 06/18/19 12:10 Consult Physician Urgent Consulting Provider: Rinku Powell Consult Reason/Comments: GI bleed, pancreatitis Do you want consulting provider notified?: Already Contacted 06/19/19 08:47 Consult Physician Routine Consulting Provider: Emma Mohamud Consult Reason/Comments: colitis Do you want consulting provider notified?: Yes Primary care physician: [facility] Course: Final Diagnoses: Abdominal pain , accompanied by bright red rectal bleeding,subsided Nonspecific mild colitis, in a patient with history of ulcerative colitis sigmoid diverticulosis pancreatitis, Anxiety, depression Occasional THC use Occasional EtOH use Hospital course:This is a 54-year-old female with history of ulcerative colitis, breast cancer, cellulitis, chronic back pain, sciatica, anxiety, depression, degenerative disc disease, presented to the ER with complaints of malaise, bright red rectal bleeding, abdominal pain. Reports last colonoscopy with a precancerous polyp approximately 3 -4 years ago which is about the last time she followed up with Dr. Mohamud. Reports bright red rectal bleeding 2 days with generalized diffuse abdominal pain, nausea and no emesis. Denies chills or fever. Denies chest pain, palpitations or shortness of breath. Abdominal/pelvis CT reporting small 4 mm peripheral right basilar pulmonary nodules unchanged, moderate apical scarring throughout the abdominal aorta and common iliac arteries without aneurysm, no dilated small bowel free fluid or free air, no mesenteric or retroperitoneal lymphadenopathy , mild circumferential wall thickening along the mid to distal sigmoid -nonspecific mild colitis, sigmoid diverticulosis. Afebrile, normal WBC. Positive stool for occult blood .Hemoglobin 14.2. Platelets 245, bili 0.8, AST 32, ALT 37, amylase 215 down to 96, lipase 691 down to 180. UA with moderate leukocytes, 3 WBCs, rare bacteria. Evaluated by GI. Outpatient colonoscopy and no oral or rectal steroids recommended at this time the patient with history of ischemic colitis. Evaluated by surgery with HIDA scan pending. Significant clinical improvement. Cleared by GI for discharge. Patient will be discharged home in stable condition with guarded prognosis pending surgeries clearance. EXAM: GENERAL: Alert and oriented 3, no acute distress CARDIOVASCULAR: S1, S2 regular. No murmur RESPIRATION: Breath sounds diminished in the bases. No rhonchi or crackles. ABDOMEN: Soft, nontender, Bowel sounds heard. NERVOUS SYSTEM: No focal deficits. The impression and plan of care has been dictated as directed. : I performed a history and examination of this patient, discussed the same with the dictator. I agree with the dictator's note ,documented as a scribe. Any additional findings or plans will be noted. Patient Condition at Discharge: Stable Plan - Discharge Summary Discharge Rx Participant: No New Discharge Prescriptions: New Dicyclomine [Bentyl] 20 mg PO QID PRN #28 tab PRN Reason: Dyspepsia Pantoprazole Sodium [Protonix] 40 mg PO DAILY #30 tablet.dr Savage HYDROcodone/APAP 10-325MG [[place] 10-325] 1 - 2 tab PO DAILY PRN PRN Reason: Pain Bisoprolol-Hctz 5-6.25 mg [Ziac 5-6.25 MG] 1 tab PO DAILY Atorvastatin [Lipitor] 20 mg PO HS Discharge Medication List HYDROcodone/APAP 10-325MG [[place] 10-325] 1 - 2 tab PO DAILY PRN 09/25/15 [History] Bisoprolol-Hctz 5-6.25 mg [[place] 5-6.25 MG] 1 tab PO DAILY 01/18/16 [History] Atorvastatin [Lipitor] 20 mg PO HS 06/18/19 [History] Dicyclomine [Bentyl] 20 mg PO QID PRN #28 tab 06/20/19 [Rx] Pantoprazole Sodium [Protonix] 40 mg PO DAILY #30 tablet. 06/20/19 [Rx] Follow up Appointment(s)/Referral(s): Rinku Powell MD [STAFF PHYSICIAN] - 1 Week Yonatan Melchor Jr, DO [Primary Care Provider] - 3 Days Emma Mohamud MD [STAFF PHYSICIAN] - 1 Week
--- NOTE | 2019-06-20 14:20 | NM ---
EXAMINATION TYPE: NM hepatobiliary w CCK DATE OF EXAM: 06/20/2019 COMPARISON: Abdominal ultrasound dated 06/19/2019 HISTORY: Abdominal pain TECHNIQUE: After the intravenous administration of 4.1 mCi Tc 99m Mebrofenin hepatobiliary scintigrap hy is performed. Immediate images post injection. FINDINGS: There is satisfactory initial accumulation of tracer by the liver. The gallbladder is visualized wit hin 18 minutes. The small bowel activity is noted within 58 minutes. At one hour CCK was administer ed, patient was injected with 1.5 mcg of Kinevac, and gallbladder ejection fraction is calculated at 35 %, lower limits of normal. Therefore there is no scintigraphic evidence of cystic or common bile duct obstruction to suggest acute cholecystitis or gallbladder dyskinesia. IMPRESSION: No scintigraphic evidence of acute or chronic cholecystitis. Biliary ejection fraction is lower limits of normal nearing criteria for biliary dyskinesia.
[2019-06-20 15:14] VITALS: BP 151/83; PULSE 68; TEMP 98.3
--- NOTE | 2019-06-20 18:18 | PN ---
PROGRESS NOTE DATE OF DICTATION: 06/20/2019 The patient is a 54-year-old pleasant white female admitted to the hospital with acute onset of severe lower abdominal pain followed by diarrhea, followed by bright red blood per rectum that started 2 days ago. This morning she states that she is feeling better. However, she continues to have cramping abdominal pain. She had no further episodes of bowel movements or any rectal bleeding. She had a HIDA scan done to evaluate the right upper quadrant abdominal pain. She reports no nausea, vomiting. PHYSICAL EXAMINATION: Appears comfortable. No apparent distress. VITAL SIGNS: Stable. Blood pressure is 149/86, pulse rate 60, temperature 97.8. HEENT examination unremarkable. Conjunctivae pink. Sclerae anicteric. Oral cavity no lesions. NECK: No JVD or lymph node enlargement. CHEST: Clear to auscultation. HEART: Regular rate and rhythm. ABDOMEN: Soft. There was mild tenderness in the left lower quadrant area. EXTREMITIES: No pedal edema. SKIN: No rashes. NEUROLOGIC: Alert and oriented x3. No focal deficits. LABS: WBC 6.6, hemoglobin 14.4, platelets normal. Basic metabolic panel is within normal limits. IMPRESSION: This lady presented to the hospital with acute onset of lower abdominal pain followed by bloody diarrhea of [address] scan showed thickening of the left colon consistent with acute colitis, possibly infectious versus ischemic in etiology, on empiric antibiotics. The bleeding and diarrhea have subsided. However, she continues to have some cramping lower abdominal pain. Hemoglobin is stable at 14 g/dL. RECOMMENDATIONS: 1. Advance diet as tolerated. 2. Await results of the HIDA scan. 3. Repeat labs in the morning. If they are improving and she has no further episodes of bleeding, she can be discharged home with outpatient followup in 2 weeks. Thank you for this consultation. MMODL / IJN: [id number] /
== END 2019-06-20 15:28 | disposition home or self-care (01) ==
LOC: EC 08:30 → 4SSUR 12:07
PROVIDERS: ADMIT Family Medicine; ATTEND Family Medicine
DX: K50.111 Crohn's disease of large intestine with rectal bleeding (principal); E78.5 Hyperlipidemia, unspecified; F17.210 Nicotine dependence, cigarettes, uncomplicated; F32.9 Major depressive disorder, single episode, unspecified; F41.9 Anxiety disorder, unspecified; I10 Essential (primary) hypertension; K57.30 Diverticulosis of large intestine without perforation or abscess without bleeding; K82.1 Hydrops of gallbladder; K85.90 Acute pancreatitis without necrosis or infection, unspecified; Z79.899 Other long term (current) drug therapy; Z80.3 Family history of malignant neoplasm of breast; Z82.3 Family history of stroke; Z85.3 Personal history of malignant neoplasm of breast; Z87.19 Personal history of other diseases of the digestive system; Z90.13 Acquired absence of bilateral breasts and nipples; Z98.82 Breast implant status
CPT/HCPCS: 96376 ×3; 96366; 96361; 96365; 96375; 99285; 36415; 86900; 86901; 80053 ×2; 80048; 82150 ×2; 83690 ×2; 83735; 85025 ×3; 85610; 85730; 86850; 86140; 82272; 81001; 87040; 76705; 74177; 78227; G0378 ×3; A9537; J2270; J2405 ×3; J2805; J1885; J1170 ×5; J0295; C9113 ×3; Q9967

== ENCOUNTER → 2019-07-11 | Day surgery (SDC) | payer OTHER ==
[2019-07-06 10:51] VITALS: BMI 26.6
[~2019-07-11] MED LIST: .MORPHINE SULFATE (INJ) 10 MG/ML SYRINGE ONE; BUPIVACAINE (PF) 0.25% 30 ML VIAL SQ ONE; DEXAMETHASONE SOD PHOSPHATE 10 MG/ML 1 ML VIAL IV ONE; GLYCOPYRROLATE 0.2 MG/ML 2 ML VIAL ONE; HEPARIN SODIUM,PORCINE 5,000 UNIT/ML 1 ML VIAL SQ ONE; HYDROcodone/APAP 10-325MG 1 EACH TAB PO ONE; KETOROLAC 30 MG/ML 1 ML VIAL IVP SCH; KETOROLAC 30 MG/ML 1 ML VIAL ONE; LACTATED RINGERS 1,000 ML IV ONE; LACTATED RINGERS 1,000 ML IV SCH; LIDOCAINE 1% (10MG/ML) FOR IV START INTRADERMA PRN; LIDOCAINE 1% INJ 10MG/ML (20 ML MDV) ONE; METOCLOPRAMIDE 5 MG/ML 2 ML VIAL IVP PRN; MIDAZOLAM 2 MG/2 ML VIAL IV ONE; MIDAZOLAM 2 MG/2 ML VIAL ONE; NEOSTIGMINE 1 MG/ML 10 ML VIAL ONE; ONDANSETRON 4 MG/2 ML VIAL IVP ONE; PROPOFOL 10 MG/ML 20 ML VIAL IV ONE; ROCURONIUM BROMIDE 10 MG/ML 5 ML VIAL IV ONE; SCOPOLAMINE 1.5MG/72HR PATCH TRANSDERM ONE; SUCCINYLCHOLINE CHLORIDE 100 MG/5 ML SYR IV ONE; fentaNYL (PF) 50 MCG/ML 2 ML AMP ONE
--- NOTE | 2019-07-11 11:15 | P.GSHP ---
History of Present Illness H&P Date: 07/11/19 Chief Complaint: Right upper quadrant pain The 54-year-old female and second with right quadrant pain. Patient recent HIDA scan which was diminished ejection fraction. Patient pain when she received 5 foods. She presents today for laparoscopic cholecystectomy. Past Medical History Past Medical History: Cancer, Hyperlipidemia, Hypertension, Musculoskeletal Disorder Additional Past Medical History / Comment(s): CELLULITIS L breast multiple times, 2008 R breast cancer with bilateral mastectomies-no chemo, chronic back pain, discomfort with urinating-burning for 2 yrs, DDD, R shoulder pain, R collar bone fx in past, ischemic colitis, hx rectal bleeding, panceatitis. History of Any Multi-Drug Resistant Organisms: None Reported Past Surgical History: Bladder Surgery, Breast Surgery, Section, Tubal Ligation, Uterine Ablation Additional Past Surgical History / Comment(s): Bilateral mastectomy with reconstruction- L breast implant removed and replaced, bladder suspension, pain clinic injections. Past Anesthesia/Blood Transfusion Reactions: Motion Sickness, Postoperative Nausea & Vomiting (PONV) Additional Past Anesthesia/Blood Transfusion Reaction / Comment(s): Pt has never received blood. Past Psychological History: Anxiety, Depression Smoking Status: Former smoker Past Alcohol Use History: None Reported Additional Past Alcohol Use History / Comment(s): Pt started smoking in 1969 and quit in 2009. She was a half pack a day smoker. Past Drug Use History: Marijuana Additional Drug Use History / Comment(s): Pt states she smokes marijuana on occasion but not regularly for pain purposes. Aware no use 24 hrs prior to procedure. - Past Family History Father Family Medical History: CVA/TIA Additional Family Medical History / Comment(s): Father of a CVA at age 51 yrs. Mother Family Medical History: Cancer Additional Family Medical History / Comment(s): Mom from breast cancer at the age of 45 yrs. Siblings are healthy. Medications and Allergies Home Medications Medication Instructions Recorded Confirmed Type HYDROcodone/APAP 10-325MG [[place] 1 - 2 tab PO DAILY PRN 09/25/15 07/06/19 History 10-325] Bisoprolol-Hctz 5-6.25 mg [Ziac 1 tab PO HS 01/18/16 07/06/19 History 5-6.25 MG] Atorvastatin [Lipitor] 20 mg PO HS 06/18/19 07/06/19 History Allergies Allergy/AdvReac Type Severity Reaction Status Date / Time bacitracin Allergy Unknown Verified 07/11/19 10:28 [From Neosporin ([id number])] bacitracin zinc Allergy Unknown Verified 07/11/19 10:28 [From Neosporin ([id number])] minocycline [Minocycline] Allergy Unknown Verified 07/11/19 10:28 neomycin sulfate Allergy Unknown Verified 07/11/19 10:28 [From Neosporin ([id number])] polymyxin B Allergy Unknown Verified 07/11/19 10:28 [From Neosporin ([id number])] Surgical - Exam Vital Signs Temp Pulse Resp BP Pulse Ox 97.3 F L 55 L 16 130/72 96 07/11/19 10:45 07/11/19 10:45 07/11/19 10:45 07/11/19 10:45 07/11/19 10:45 - General well developed, well nourished, no distress - Eyes PERRL - ENT normal pinna - Neck no masses - Respiratory normal expansion - Cardiovascular Rhythm: regular - Abdomen Abdomen: soft, non tender Assessment and Plan Assessment: Quadrant pain Chronic cholecystitis We'll perform laparoscopic cholecystectomy.
--- NOTE | 2019-07-11 12:13 | P.OP ---
Date of Procedure: 07/11/19 Preoperative Diagnosis: Cholecystitis Postoperative Diagnosis: Cholecystitis Procedure(s) Performed: Laparoscopic cholecystectomy Anesthesia: ANNA Surgeon: Rinku Powell Estimated Blood Loss (ml): 5 Pathology: other (Gallbladder) Condition: stable Disposition: PACU Description of Procedure: The patient was placed on the operating table. The patient received a general endotracheal tube anesthesia. The patients abdomen was prepped and draped in the usual sterile fashion. Through an infraumbilical stab incision, the fascia of the anterior abdominal wall was grasped with a pair of Kochers and then the Veress needle was placed in the peritoneal cavity. Position of the Veress needle was confirmed with positive drop test. The abdomen was then insufflated. After adequate insufflation, the 10 mm trocar was placed in the peritoneal cavity. Following this the laparoscope was placed in the peritoneal cavity. The patient was placed in the head-up, right side up position and then a 5 mm trocar was placed in the right lateral and right subcostal position under direct visualization. A 8 mm trocar was placed in the epigastric position. The gallbladder was grasped in the fundus and infundibulum. Traction on the gallbladder was placed in the lateral and the cephalad positions. The triangle of Calot was visualized.. The cystic duct was bluntly dissected until the union of the cystic duct and common bile duct was seen. A critical view of safety was achieved. The cystic duct was then divided and sealed with the Harmonic scissors. A PDS Endoloop was then placed throughout the cystic duct stump. The cystic artery divided and sealed with the Harmonic scissors. The gallbladder was then removed from the liver bed using Harmonic scissors. The gallbladder was then extracted through the epigastric port site. Operative field was checked for any bleeding spots and Harmonic scissors was used to coagulate the liver bed. The abdomen was irrigated. The trocars were removed. The skin was closed using interrupted 3-0 Vicryl suture. Dermabond dressing were applied. The patient tolerated the procedure well.
[2019-07-11] MEDS: HYDROmorphone 0.5 MG/0.5 ML SYRINGE IVP PRN ×2 (12:24→12:39)
[2019-07-11 12:36] VITALS: TEMP 97.1
[2019-07-11 12:45] VITALS: RESP 16
[2019-07-11 13:48] VITALS: BP 121/76; PULSE 55
== END | disposition home or self-care (01) ==
LOC: OR 10:12
PROVIDERS: ATTEND Surgery
DX: K81.1 Chronic cholecystitis (principal); I10 Essential (primary) hypertension; E78.5 Hyperlipidemia, unspecified; F41.9 Anxiety disorder, unspecified; F32.9 Major depressive disorder, single episode, unspecified; K55.9 Vascular disorder of intestine, unspecified; Z88.1 Allergy status to other antibiotic agents; Z87.891 Personal history of nicotine dependence; Z85.3 Personal history of malignant neoplasm of breast; Z90.13 Acquired absence of bilateral breasts and nipples; Z98.891 History of uterine scar from previous surgery; Z79.899 Other long term (current) drug therapy; Z98.51 Tubal ligation status; Z82.0 Family history of epilepsy and other diseases of the nervous system; Z80.3 Family history of malignant neoplasm of breast
CPT/HCPCS: 88304; 47562; J2250; J1644; J1100; J2710; J2270; J0690; J2405; J2001; J3010; J1885; J0330; J2704; J1170

== ENCOUNTER → 2019-12-06 | Outpatient (CLI) | payer OTHER ==
[2019-12-06 12:33] LABS: Basophils # (A) 0.1 k/uL (0-0.2); Basophils % (A) 1 %; Eosinophils # (A) 0.2 k/uL (0-0.7); Eosinophils % (A) 2 %; HCT 43.9 % (34.0-46.0); HGB 14.5 gm/dL (11.4-16.0); Lymphocytes # (A) 1.6 k/uL (1.0-4.8); Lymphocytes % (A) 21 %; MCH 31.5 pg (25.0-35.0); MCHC 33.1 g/dL (31.0-37.0); MCV 95.1 fL (80.0-100.0); Mean Platelet Volume 7.4; Monocytes # (A) 0.3 k/uL (0-1.0); Monocytes % (A) 4 %; Neutrophils # (A) 5.4 k/uL (1.3-7.7); Neutrophils % (A) 71 %; Platelet Count 242 k/uL (150-450); RBC 4.61 m/uL (3.80-5.40); RDW 12.7 % (11.5-15.5); WBC 7.6 k/uL (3.8-10.6)
== END | disposition home or self-care (01) ==
LOC: LABWHC1 11:43
PROVIDERS: ATTEND Nurse Practitioner
DX: K62.5 Hemorrhage of anus and rectum (principal)
CPT/HCPCS: 36415; 85025

== ENCOUNTER → 2020-01-10 | Outpatient (CLI) | payer OTHER ==
[2020-01-10 11:55] LABS: Basophils % (A) 1 %; Eosinophils # (A) 0.2 k/uL (0-0.7); Eosinophils % (A) 2 %; HCT 42.3 % (34.0-46.0); HGB 13.7 gm/dL (11.4-16.0); Lymphocytes # (A) 1.5 k/uL (1.0-4.8); Lymphocytes % (A) 22 %; MCHC 32.5 g/dL (31.0-37.0); MCV 95.4 fL (80.0-100.0); Mean Platelet Volume 7.5; Monocytes # (A) 0.3 k/uL (0-1.0); Monocytes % (A) 5 %; Neutrophils # (A) 4.7 k/uL (1.3-7.7); Neutrophils % (A) 68 %; Platelet Count 236 k/uL (150-450); RBC 4.43 m/uL (3.80-5.40); RDW 12.9 % (11.5-15.5); WBC 6.8 k/uL (3.8-10.6)
== END | disposition home or self-care (01) ==
LOC: LABWHC1 11:03
PROVIDERS: ATTEND Nurse Practitioner
DX: R10.9 Unspecified abdominal pain (principal); R19.7 Diarrhea, unspecified
CPT/HCPCS: 36415; 83630; 85025; 87045; 87046; 87328; 87329

== ENCOUNTER → 2020-02-02 | Outpatient (CLI) | payer OTHER ==
--- NOTE | 2020-02-02 14:01 | XR ---
EXAMINATION TYPE: XR KUB DATE OF EXAM: 02/02/2020 1:44 PM CLINICAL HISTORY: Right upper quadrant pain and bloody stools. TECHNIQUE: Supine images of the abdomen and pelvis were obtained COMPARISON: None. FINDINGS: Nonspecific bowel gas pattern. There is a paucity of small bowel gas. There is no viscerome analilia, large pneumoperitoneum, or abnormal calcification appreciated. Pelvic phleboliths. The lung bas es are clear. The osseous structures are intact. IMPRESSION: Nonspecific bowel gas pattern.
[2020-02-02 15:50] LABS: Basophils # (A) 0.1 k/uL (0-0.2); Basophils % (A) 1 %; Eosinophils # (A) 0.2 k/uL (0-0.7); Eosinophils % (A) 2 %; HCT 43.6 % (34.0-46.0); HGB 14.4 gm/dL (11.4-16.0); Lymphocytes # (A) 1.7 k/uL (1.0-4.8); Lymphocytes % (A) 20 %; MCH 31.3 pg (25.0-35.0); MCV 94.8 fL (80.0-100.0); Monocytes # (A) 0.4 k/uL (0-1.0); Monocytes % (A) 5 %; Neutrophils % (A) 70 %; Platelet Count 275 k/uL (150-450); WBC 8.6 k/uL (3.8-10.6)
[2020-02-02 19:34] LABS: African American GFR (CKD) 119.8 (60.0-200.0); Albumin 4.7 g/dL (3.80-4.90); Albumin/Globulin Ratio 2.04 (1.60-3.17); Anion Gap 7.8 mmol/L (4.00-12.00); Calcium 9.7 mg/dL (8.7-10.3); Carbon Dioxide 27.2 mmol/L (21.6-31.8); Globulin 2.3 g/dL (1.6-3.3); Non-African American GFR(CKD) 103.3 (60.0-200.0); Potassium 4.3 mmol/L (3.5-5.5); Total Bilirubin 0.6 mg/dL (0.3-1.2)
== END | disposition home or self-care (01) ==
LOC: LABWHC1 13:18
PROVIDERS: ATTEND Nurse Practitioner Family
DX: R31.9 Hematuria, unspecified (principal); R10.11 Right upper quadrant pain; R10.32 Left lower quadrant pain; Z88.1 Allergy status to other antibiotic agents
CPT/HCPCS: 36415; 74018; 80053; 85025

== ENCOUNTER 2020-03-14 09:46 | Emergency (ER) | payer OTHER ==
[2020-03-14 09:58] VITALS: BP 155/98; PULSE 72; RESP 18; TEMP 98.3
[2020-03-14] MEDS ORDERED: DIPH,PERTUS(ACELL)TETVAC-LF 0.5 ML VIAL IM ONE (10:27)
--- NOTE | 2020-03-14 10:28 | ED ---
General Adult HPI - General Chief complaint: Needlestick/Exposure Stated complaint: NEEDLE POKE Time Seen by Provider: 03/14/20 10:04 Source: patient, RN notes reviewed Mode of arrival: ambulatory Limitations: no limitations - History of Present Illness Initial comments: 54-year-old female with a past medical history of breast cancer, hyperlipidemia, hypertension presents to the emergency room for a chief complaint of needle stick injury. Patient reports that her son has been living with her. Patient states her son is an IV drug user who is positive for hepatitis C who does not receive treatment. She states she was cleaning up one of his needles yesterday when it poked her in one of her fingers. She cannot room number which finger. She called her doctor this morning who wanted her to be seen in the emergency room.Patient has no other complaints at this time including shortness of breath, chest pain, abdominal pain, nausea or vomiting, headache, or visual changes. - Related Data Home Medications Medication Instructions Recorded Confirmed Bisoprolol-Hctz 5-6.25 mg [Ziac 1 tab PO HS 01/18/16 02/06/20 5-6.25 MG] Atorvastatin [Lipitor] 20 mg PO HS 06/18/19 02/06/20 HYDROcodone/APAP 7.5-325MG [[place] 1 tab PO Q8H PRN 02/06/20 02/06/20 7.5-325] Tamsulosin HCl [Flomax] 0.4 mg PO DAILY 02/06/20 02/06/20 Allergies Allergy/AdvReac Type Severity Reaction Status Date / Time bacitracin Allergy Unknown Verified 03/14/20 09:58 [From Neosporin ([id number])] bacitracin zinc Allergy Unknown Verified 03/14/20 09:58 [From Neosporin ([id number])] minocycline [Minocycline] Allergy Unknown Verified 03/14/20 09:58 neomycin sulfate Allergy Unknown Verified 03/14/20 09:58 [From Neosporin ([id number])] polymyxin B Allergy Unknown Verified 03/14/20 09:58 [From Neosporin ([id number])] Review of Systems ROS Statement: Those systems with pertinent positive or pertinent negative responses have been documented in the HPI. ROS Other: All systems not noted in ROS Statement are negative. Past Medical History Past Medical History: Cancer, Hyperlipidemia, Hypertension, Musculoskeletal D isorder Additional Past Medical History / Comment(s): 2007 R breast cancer with bilateral mastectomies-no chemo, chronic back pain History of Any Multi-Drug Resistant Organisms: None Reported Past Surgical History: Bladder Surgery, Breast Surgery, Section, Cholecystectomy, Tubal Ligation, Uterine Ablation Additional Past Surgical History / Comment(s): Bilateral mastectomy with reconstruction- L breast implant removed and replaced, bladder suspension Past Anesthesia/Blood Transfusion Reactions: Motion Sickness, Postoperative Nausea & Vomiting (PONV) Additional Past Anesthesia/Blood Transfusion Reaction / Comment(s): Pt has never received blood. Past Psychological History: Anxiety, Depression Smoking Status: Never smoker Past Alcohol Use History: Occasional Past Drug Use History: Marijuana - Past Family History Father Family Medical History: CVA/TIA Additional Family Medical History / Comment(s): Father of a CVA at age 51 yrs. Mother Family Medical History: Cancer Additional Family Medical History / Comment(s): Mom from breast cancer at the age of 45 yrs. Siblings are healthy. General Exam Limitations: no limitations General appearance: alert, in no apparent distress Head exam: Present: atraumatic, normocephalic, normal inspection Eye exam: Present: normal appearance, PERRL, EOMI. Absent: scleral icterus, conjunctival injection, periorbital swelling ENT exam: Present: normal exam, mucous membranes moist Neck exam: Present: normal inspection, full ROM. Absent: tenderness, meningismus, lymphadenopathy Respiratory exam: Present: normal lung sounds bilaterally. Absent: respiratory distress, wheezes, rales, rhonchi, stridor Cardiovascular Exam: Present: regular rate, normal rhythm, normal heart sounds. Absent: systolic murmur, diastolic murmur, rubs, gallop, clicks GI/Abdominal exam: Present: soft, normal bowel sounds. Absent: distended, tenderness, guarding, rebound, rigid Course Vital Signs 03/14/20 09:56 Temperature 98.3 F Pulse Rate 72 Respiratory 18 Rate Blood Pressure 155/98 O2 Sat by Pulse 99 Oximetry Medical Decision Making - Medical Decision Making We did contact Dr. Martinez infectious disease specialist. At this time there is no hepatitis C postexposure prophylaxis. Recommends running HIV, hepatitis A, hepatitis B titers and following up with primary care. Patient was updated on tetanus. Disposition Clinical Impression: Needlestick injury of finger Disposition: HOME SELF-CARE Condition: Good Instructions (If sedation given, give patient instructions): Needle Stick Injuries (ED) Additional Instructions: Please follow up with primary care in 1-2 days. They will likely repeat your titers in 4-6 weeks. Return to the emergency room for any worsening symptoms. Is patient prescribed a controlled substance at d/c from ED?: No Referrals: Yonatan Melchor Jr, DO [Primary Care Provider] - 1-2 days Time of Disposition: 10:35
== END 2020-03-14 10:55 | disposition home or self-care (01) ==
LOC: EC 09:46
DX: S69.80XA Other specified injuries of unspecified wrist, hand and finger(s), initial encounter (principal); E78.5 Hyperlipidemia, unspecified; I10 Essential (primary) hypertension; G89.29 Other chronic pain; M54.9 Dorsalgia, unspecified; Z79.899 Other long term (current) drug therapy; Z23 Encounter for immunization; Z88.1 Allergy status to other antibiotic agents; Z85.3 Personal history of malignant neoplasm of breast; Z98.890 Other specified postprocedural states; Z83.1 Family history of other infectious and parasitic diseases; W46.1XXA Contact with contaminated hypodermic needle, initial encounter; Y93.E9 Activity, other interior property and clothing maintenance
CPT/HCPCS: 90471; 90715; 99283

== ENCOUNTER → 2021-09-23 | Outpatient (CLI) | payer OTHER ==
--- NOTE | 2021-09-23 14:48 | XR ---
EXAMINATION TYPE: XR shoulder limited RT DATE OF EXAM: 09/23/2021 COMPARISON: 12/24/2013 HISTORY: Pain TECHNIQUE: Three views are submitted. FINDINGS: The osseous structures are intact. There is no acute fracture or dislocation. Is widening of the AC j oint with elevation the clavicle compatible with grade 3 AC joint separation. Remote fracture mid rig ht clavicle noted. Soft tissue ossifications are noted. IMPRESSION: 1. Remote fracture right clavicle. 2. Grade 3 AC joint separation similar to prior exam.
== END | disposition home or self-care (01) ==
LOC: RADXRMAIN 14:22
PROVIDERS: ATTEND Family Medicine
DX: S43.101A Unspecified dislocation of right acromioclavicular joint, initial encounter (principal); S42.001A Fracture of unspecified part of right clavicle, initial encounter for closed fracture; X58.XXXA Exposure to other specified factors, initial encounter

== ENCOUNTER → 2023-04-30 | Outpatient (CLI) | payer OTHER ==
[2023-04-30 12:54] LABS: Basophils % (A) 0 %; Eosinophils # (A) 0.1 k/uL (0-0.7); Eosinophils % (A) 2 %; HCT 41.9 % (34.0-46.0); HGB 14.3 gm/dL (11.4-16.0); Lymphocytes # (A) 1.6 k/uL (1.0-4.8); Lymphocytes % (A) 23 %; MCH 32.8 pg (25.0-35.0); MCHC 34.1 g/dL (31.0-37.0); MCV 96.1 fL (80.0-100.0); Mean Platelet Volume 7.5; Monocytes # (A) 0.3 k/uL (0-1.0); Monocytes % (A) 5 %; Neutrophils % (A) 70 %; Platelet Count 264 k/uL (150-450); RBC 4.36 m/uL (3.80-5.40); RDW 12.7 % (11.5-15.5); WBC 7.2 k/uL (3.8-10.6)
== END | disposition home or self-care (01) ==
LOC: LABWHC1 12:13
PROVIDERS: ATTEND Family Medicine
DX: K62.5 Hemorrhage of anus and rectum (principal)
CPT/HCPCS: 36415; 85025

== ENCOUNTER 2023-05-14 12:55 | Day surgery (SDC) | payer OTHER ==
[2023-05-13 15:21] VITALS: BMI 26.1
[~2023-05-14 12:55] MED LIST changes: -.MORPHINE SULFATE (INJ) 10 MG/ML SYRINGE ONE; -BUPIVACAINE (PF) 0.25% 30 ML VIAL SQ ONE; -DEXAMETHASONE SOD PHOSPHATE 10 MG/ML 1 ML VIAL IV ONE; -GLYCOPYRROLATE 0.2 MG/ML 2 ML VIAL ONE; -HEPARIN SODIUM,PORCINE 5,000 UNIT/ML 1 ML VIAL SQ ONE; -HYDROcodone/APAP 10-325MG 1 EACH TAB PO ONE; -KETOROLAC 30 MG/ML 1 ML VIAL IVP SCH; -KETOROLAC 30 MG/ML 1 ML VIAL ONE; -LACTATED RINGERS 1,000 ML IV ONE; -LIDOCAINE 1% INJ 10MG/ML (20 ML MDV) ONE; -METOCLOPRAMIDE 5 MG/ML 2 ML VIAL IVP PRN; -MIDAZOLAM 2 MG/2 ML VIAL IV ONE; -MIDAZOLAM 2 MG/2 ML VIAL ONE; -NEOSTIGMINE 1 MG/ML 10 ML VIAL ONE; -ONDANSETRON 4 MG/2 ML VIAL IVP ONE; -PROPOFOL 10 MG/ML 20 ML VIAL IV ONE; -ROCURONIUM BROMIDE 10 MG/ML 5 ML VIAL IV ONE; -SCOPOLAMINE 1.5MG/72HR PATCH TRANSDERM ONE; -SUCCINYLCHOLINE CHLORIDE 100 MG/5 ML SYR IV ONE; -fentaNYL (PF) 50 MCG/ML 2 ML AMP ONE
[2023-05-14 14:32] VITALS: TEMP 97
[2023-05-14] MEDS ORDERED: PROPOFOL 10 MG/ML 20 ML VIAL IV ONE (15:24)
--- NOTE | 2023-05-14 15:38 | P.PCN ---
Date of Procedure: 05/14/23 Procedure(s) Performed: BRIEF HISTORY: Patient is a 58-year-old pleasant female scheduled for an elective colonoscopy as a part of evaluation of rectal bleeding for the last 1 week duration. She had bright red blood per rectum almost every day for a week. I for the last 3 days. She also has prior history of colon polyps and her last colonoscopy was 3 years ago. PROCEDURE PERFORMED: Colonoscopy. PREOPERATIVE DIAGNOSIS: Rectal bleeding of 1 week duration and history of colon polyps. IV sedation per Anesthesia. PROCEDURE: After informed consent was obtained, the patient, was brought into the endoscopy unit. IV sedation was administered by Anesthesia under continuous monitoring. Digital rectal examination was normal. Initially the Olympus CF-160 flexible video colonoscope was then inserted in the rectum, gradually advanced into the cecum without any difficulty. Careful examination was performed as the scope was gradually being withdrawn. Ileocecal valve and the appendiceal orifice were visualized and appeared normal. Prep was excellent. Mucosa of the cecum, ascending colon, transverse colon, descending colon, sigmoid colon, and rectum appeared normal. Scattered sigmoid diverticulosis. Retroflexion was performed in the rectum and grade 2 internal hemorrhoids were seen. The patient tolerated the procedure well. IMPRESSION: Normal-appearing colon from rectum to cecum with no evidence of colorectal neoplasia Scattered small diverticulosis Grade 2 internal hemorrhoids . RECOMMENDATIONS: Findings of this examination were discussed with the patient as well as a family. She was advised to Be a high-fiber diet and take fiber supplements a regular basis and avoid straining and constipation. Recommend repeat colonoscopy in 5 years because of the prior history of colon polyps..
[2023-05-14 15:50] VITALS: RESP 18
[2023-05-14 16:15] VITALS: BP 137/78; PULSE 68
== END 2023-05-14 16:16 | disposition home or self-care (01) ==
LOC: ORWHC2ENDO 12:55
PROVIDERS: ATTEND Internal Medicine Gastroenterology
DX: Z12.11 Encounter for screening for malignant neoplasm of colon (principal); K57.30 Diverticulosis of large intestine without perforation or abscess without bleeding; K62.5 Hemorrhage of anus and rectum; K64.1 Second degree hemorrhoids; I10 Essential (primary) hypertension; E78.5 Hyperlipidemia, unspecified; Z79.899 Other long term (current) drug therapy; Z88.1 Allergy status to other antibiotic agents; Z86.010 Personal history of colon polyps
CPT/HCPCS: 45378; J2704

== ENCOUNTER → 2023-09-02 | Outpatient (CLI) | payer OTHER ==
--- NOTE | 2023-09-04 07:38 | PE ---
EXAMINATION TYPE: PET CT fusion skull to thigh DATE OF EXAM: 09/02/2023 COMPARISON: CTA abdomen and pelvis August 12, 2023 and older studies. HISTORY: Solitary pulmonary nodule. TECHNIQUE: Following the intravenous administration of 10.45 mCi of F-18 FDG, whole body images are performed from the skull base to the midthigh. Images are reviewed on the computer in the coronal, a xial, and sagittal planes. Reconstructed rotating images are created on independent workstation and reviewed on the computer. A localization and attenuation correction CT is performed in conjunction with the PET scan. Glucose level equals 115. SCAN: Initial Scan FINDINGS: SKULL BASE AND NECK: No areas of abnormal hypermetabolic uptake. CHEST, MEDIASTINUM, AND HILAR REGION: Redemonstration of 6 x 5 mm peripheral right basilar nodule axi al image 115 which is currently ametabolic. No areas of abnormal hypermetabolic uptake to suggest mal ignancy in the thorax. ABDOMEN AND PELVIS: Normal excretion. No areas of abnormal hypermetabolic uptake. OSSEOUS STRUCTURES: No areas of abnormal hypermetabolic uptake. OTHER CT: Overlying bilateral breast implants are redemonstrated. Coronary artery calcification is ag ain seen. Moderate calcified plaque of the abdominal aorta. Sigmoid colonic diverticulosis. IMPRESSION: No abnormal hypermetabolic uptake to suggest malignancy. Follow-up diagnostic chest CT in one year time is advised to reassess.
== END | disposition home or self-care (01) ==
LOC: RADPETMAIN 06:29
PROVIDERS: ATTEND Family Medicine
DX: R91.1 Solitary pulmonary nodule (principal)
CPT/HCPCS: 78815; A9552

== ENCOUNTER → 2024-03-06 | Outpatient (CLI) | payer OTHER ==
[2024-03-06 15:40] LABS: ALT 26 U/L (8-44); AST 17 U/L (13-35); Albumin 4.5 g/dL (3.8-4.9); Albumin/Globulin Ratio 1.88 Ratio (1.60-3.17); Alkaline Phosphatase 101 U/L (41-126); Blood Urea Nitrogen 14.4 mg/dL (9.0-27.0); Carbon Dioxide 21.4 mmol/L (21.6-31.8); Chloride 102 mmol/L (96-109); Chol/HDL Ratio 4.04 Ratio; Globulin 2.4 g/dL (1.6-3.3); Glucose 92 mg/dL (70-110); LDL Cholesterol,Calculated 116.2 mg/dL (0.0-131.0); Potassium 4.4 mmol/L (3.5-5.5); Sodium 137 mmol/L (135-145); Total Bilirubin 0.2 mg/dL (0.3-1.2); Total Protein 6.9 g/dL (6.2-8.2)
[2024-03-06 15:41] LABS: NT-Pro-B-Type Natriuretic Pept 133 pg/mL (0-125)
[2024-03-06 15:47] LABS: HCT 40.4 % (37.2-46.3); HGB 13.6 g/dL (12.0-15.0); MCH 31.9 pg (27.0-32.0); MCHC 33.7 g/dL (32.0-37.0); MCV 94.8 FL (80.0-97.0); Mean Platelet Volume 11.2 FL (9.5-12.2); NRBC Per 100 WBC 0 X 10*3/uL (0.00-0.01); Platelet Count 298 X 10*3/uL (140-440); RBC 4.26 X 10*6/uL (4.10-5.20); RDW 14.3 % (11.5-14.5); WBC 7.55 X 10*3/uL (4.50-10.00)
== END | disposition home or self-care (01) ==
LOC: LABWHC1 12:09
PROVIDERS: ATTEND Student in an Organized Health Care Education/Training Program
DX: I50.9 Heart failure, unspecified (principal); E78.5 Hyperlipidemia, unspecified; E11.22 Type 2 diabetes mellitus with diabetic chronic kidney disease; N18.9 Chronic kidney disease, unspecified
CPT/HCPCS: 36415; 80053; 80061; 83036; 83880; 85027

== ENCOUNTER → 2024-03-06 | Outpatient (CLI) | payer OTHER ==
--- NOTE | 2024-03-06 12:12 | CT ---
EXAMINATION TYPE: CT chest w con DATE OF EXAM: 03/06/2024 COMPARISON: August 12, 2023 HISTORY: calcification around heart CT DLP: 336.7 mGycm Automated exposure control for dose reduction was used. CONTRAST: CT scan of the chest is performed with IV Contrast, patient injected with 100 mL of Isovue 300. FINDINGS: LUNGS: Nodular density seen at the right lateral lung base is not reproduced at this time. Small pleu ral-based nodular density seen right lower lobe posteriorly. No additional distinct pulmonary nodule seen. No infiltrate or effusion. Loss. MEDIASTINUM: There are no greater than 1 cm hilar or mediastinal lymph nodes. No pericardial effusi on is seen. Thoracic aorta is of normal caliber. The heart is not enlarged. UPPER ABDOMEN: Mild hepatic steatosis. OTHER: No additional significant abnormality is seen. IMPRESSION: Nodular density seen at the right lateral lung base is not reproduced at this time. Small pleural-bas ed nodular density seen right lower lobe posteriorly [facility], , 03/06/2024 12:09 PM
== END | disposition home or self-care (01) ==
LOC: RADCTMAIN 11:25
PROVIDERS: ATTEND Internal Medicine Critical Care Medicine
DX: R91.1 Solitary pulmonary nodule (principal); E10.9 Type 1 diabetes mellitus without complications; I50.9 Heart failure, unspecified; E78.5 Hyperlipidemia, unspecified; J98.4 Other disorders of lung; K76.0 Fatty (change of) liver, not elsewhere classified
CPT/HCPCS: 71260

== ENCOUNTER → 2024-05-19 | Outpatient (CLI) | payer OTHER ==
--- NOTE | 2024-05-19 15:59 | BD ---
EXAMINATION TYPE: Axial Bone Density DATE OF EXAM: 05/19/2024 CLINICAL HISTORY: 59 years old Female. ICD-10 CODE: M79.604 PAIN IN RIGHT LEG , Additional History: Height: 64 Weight: 161.5 FRAX RISK QUESTIONS: Alcohol (3 or more units per day): no Family History (Parent hip fracture): no Glucocorticoids (More than 3mos): no (Ex: prednisone, prednisolone, methylprednisolone, dexamethasone, and hydrocortisone). History of Fracture in Adulthood: yes Secondary Osteoporosis: 1. Type 1 Diabetes: no 2. Hyperthyroidism: no 3. Menopause before 45: no 4. Malnutrition: no 5. Chronic liver disease: no Rheumatoid Arthritis: no Current Tobacco Use: no RISK FACTORS HISTORY OF: Hip Fracture (Right/Left): yes, rt Spine Fracture: no History of Wrist Fracture: no Surgery to Spine/Hip(right/left)/Wrist (right/left Rt Hip, September 2023 MEDICATIONS: Thyroid Medications: no Osteoporosis Medications: no EXAM MEASUREMENTS: Bone mineral densitometry was performed using the [employer]. Bone mineral density as measured about the Lumbar spine is: ----- L1-L4(G/cm2): 1.130 T Score Values are as follows: ----- L1: 0.2 ----- L2: -1.6 ----- L3: -0.3 ----- L4: -0.1 ----- L1-L4: -0.4 Z Score Values are as follows: ----- L1: 1.0 ----- L2: -0.7 ----- L3: 0.5 ----- L4: 0.7 ----- L1-L4: 0.4 Baseline Study Bone mineral density about the L hip (g/cm2): 0.715 T Score values are as follows: -----L Neck: -2.4 -----L Total: -2.3 Z Score values are as follows: -----L Neck: -1.4 -----L Total: -1.7 Baseline Study FRAX%s: The graph provided illustrates a18.4 % chance for a major osteoporotic fx and a 3.4% chance f or the hips probability for fx in 10 years time. IMPRESSION: Osteopenia (T Score between -2.5 and -1). Note that measurements are bordering on osteoporosis at the left hip. There is slightly increased risk of fracture and the patient may be considered for treatment. Re-Screen 2-5 years. NOTE: T-SCORE=SD OF THE YOUNG ADULT MEAN. [facility], , 05/19/2024 3:56 PM
[2024-05-19 16:45] LABS: African American GFR (CKD) >90 (>60 ml/min/1.73 sqM); Anion Gap 7 mmol/L; Blood Urea Nitrogen 17 mg/dL (7-17); Calcium 9.6 mg/dL (8.4-10.2); Carbon Dioxide 24 mmol/L (22-30); Chloride 108 mmol/L (98-107); Glucose 110 mg/dL (74-99); Non-African American GFR(CKD) >90 (>60 ml/min/1.73 sqM); Potassium 3.9 mmol/L (3.5-5.1); Sodium 139 mmol/L (137-145)
== END | disposition home or self-care (01) ==
LOC: RADBDWWP 14:37
PROVIDERS: ATTEND Family Medicine
DX: S72.051S Unspecified fracture of head of right femur, sequela (principal); M85.89 Other specified disorders of bone density and structure, multiple sites; M79.604 Pain in right leg
CPT/HCPCS: 77080; 80048; 82306